=== PATIENT | female | born 1940 | race Caucasian/White ===

== ENCOUNTER 2017-11-06 15:45 | Inpatient (IN) | payer OTHER ==
[~2017-11-06] VITALS: Ht 152.4 cm; Wt 49.9 kg
[2017-11-06] MEDS ORDERED: PROTONIX40 MG PO (16:23)
[2017-11-06] MEDS ORDERED: REM15 PO (16:24)
[2017-11-06] MEDS ORDERED: TRAZODONE50 M1 PO (16:24)
[2017-11-06] MEDS ORDERED: CARVEDILOL6.25 M1 PO (16:25)
[2017-11-06] MEDS ORDERED: RENVELA800 M1 PO (16:25)
[2017-11-06] MEDS ORDERED: LASIX40 MG PO (16:26)
[2017-11-06] MEDS ORDERED: ATIVAN0.5 M1 PO (16:26)
[2017-11-06] MEDS ORDERED: LEVAQUIN750 MG (16:27)
[2017-11-06] MEDS ORDERED: PLAVIX75 M1 PO (16:27)
[2017-11-06 17:41] LABS: BASOPHIL % 0.2 % (0-2); PLATELET COUNT 244 x10^3mcL (130-400); RED CELL DISTRIBUTION WIDTH 13.9 % (11.5-14.5)
[2017-11-06 18:25] LABS: ALKALINE PHOSPHATASE 320 U/L (46-116); ALT/SGPT 32 U/L (14-59); AST/SGOT 31 U/L (15-37); BILIRUBIN TOTAL 0.2 mg/dL (0.20-1.00); CALCIUM 8.5 mg/dL (8.5-10.1); CARBON DIOXIDE 29.2 mmol/L (21-32); CHLORIDE SERUM 100 mmol/L (98-107); GLUCOSE SERUM 161 mg/dL (74-106); HDL CHOLESTEROL 57 mg/dL (40-60); LIPASE 525 IU/L (73-393); SODIUM SERUM 140 mmol/L (136-145); T4(THYROXINE) 11.5 ug/dL (4.7-13.3)
[2017-11-06 18:33] LABS: ALBUMIN 2.9 g/dL (3.4-5.0); AMYLASE 144 U/L (25-115); CHOLESTEROL 116 mg/dL (<200); POTASSIUM SERUM 2.5 mmol/L (3.5-5.1); TOTAL PROTEIN, SERUM 8.5 g/dL (6.4-8.2)
[2017-11-06 19:01] LABS: UA SPECIFIC GRAVITY 1.025 (1.005-1.035); microscopic required? YES; urine erythrocyte NEGATIVE (NEGATIVE)
[2017-11-06 19:10] LABS: AMPHETAMINE QUAL UR NONE DETECTED (NEG <=1000)
[2017-11-06 20:58] VITALS: BP 152/60
[2017-11-06 21:06] VITALS: BP 152/60
[2017-11-07 04:56] VITALS: BP 149/62
[2017-11-07 06:16] LABS: BASOPHIL % 0.5 % (0-2); PLATELET COUNT 227 x10^3mcL (130-400); RED CELL DISTRIBUTION WIDTH 14.2 % (11.5-14.5)
[2017-11-07 06:22] LABS: CALCIUM 8.5 mg/dL (8.5-10.1); CARBON DIOXIDE 24.2 mmol/L (21-32); CHLORIDE SERUM 106 mmol/L (98-107); CREATININE SERUM 2.9 mg/dL (0.6-1.0); GLUCOSE SERUM 138 mg/dL (74-106); MAGNESIUM 2.3 mg/dL (1.8-2.4); PHOSPHOROUS 3.5 mg/dL (2.5-4.9); POTASSIUM SERUM 3.3 mmol/L (3.5-5.1); SODIUM SERUM 142 mmol/L (136-145)
[2017-11-07 12:10] VITALS: BP 143/54
[2017-11-07 13:05] VITALS: BP 143/54
[2017-11-07 17:08] VITALS: BP 109/43
[2017-11-07 20:32] VITALS: BP 141/60
[2017-11-08 05:12] VITALS: BP 117/49
[2017-11-08 06:29] LABS: CALCIUM 8.3 mg/dL (8.5-10.1); CHLORIDE SERUM 104 mmol/L (98-107); CREATININE SERUM 2.7 mg/dL (0.6-1.0); GLUCOSE SERUM 102 mg/dL (74-106); POTASSIUM SERUM 3.7 mmol/L (3.5-5.1); SODIUM SERUM 139 mmol/L (136-145)
[2017-11-08 06:39] LABS: BASOPHIL % 0.7 % (0-2); PLATELET COUNT 208 x10^3mcL (130-400); RED CELL DISTRIBUTION WIDTH 14.1 % (11.5-14.5)
[2017-11-08 08:52] VITALS: BP 139/60
[2017-11-08 12:20] VITALS: BP 129/53
[2017-11-08 18:01] VITALS: BP 121/54
[2017-11-08 22:36] VITALS: BP 118/54
[2017-11-09 06:12] VITALS: BP 134/51
[2017-11-09 08:25] LABS: CALCIUM 8.1 mg/dL (8.5-10.1); CARBON DIOXIDE 28.6 mmol/L (21-32); CHLORIDE SERUM 102 mmol/L (98-107); CREATININE SERUM 1.4 mg/dL (0.6-1.0); GLUCOSE SERUM 131 mg/dL (74-106); POTASSIUM SERUM 3.2 mmol/L (3.5-5.1); SODIUM SERUM 139 mmol/L (136-145)
[2017-11-09 08:27] LABS: BASOPHIL % 0.7 % (0-2); PLATELET COUNT 223 x10^3mcL (130-400); RED CELL DISTRIBUTION WIDTH 14.2 % (11.5-14.5)
[2017-11-09] MEDS ORDERED: CLINDAMYCIN HC300 MG PO (17:28)
[2017-11-09] MEDS ORDERED: LAC PO (17:28)
[2017-11-09] MEDS ORDERED: LEVOFLOXACIN500 M1 PO (17:28)
[2017-11-09] MEDS ORDERED: LEXAPRO10 MG PO (17:28)
[2017-11-09 17:41] VITALS: BP 134/51
[2017-11-09 21:07] VITALS: BP 160/57
[2017-11-10 05:49] VITALS: BP 141/60
[2017-11-10 07:08] LABS: BASOPHIL % 0.5 % (0-2); PLATELET COUNT 250 x10^3mcL (130-400); RED CELL DISTRIBUTION WIDTH 14.2 % (11.5-14.5)
[2017-11-10 07:32] LABS: CALCIUM 8.1 mg/dL (8.5-10.1); CHLORIDE SERUM 103 mmol/L (98-107); GLUCOSE SERUM 139 mg/dL (74-106); POTASSIUM SERUM 4.3 mmol/L (3.5-5.1); SODIUM SERUM 138 mmol/L (136-145)
[2017-11-10 10:14] VITALS: BP 148/49
[2017-11-10 13:55] VITALS: BP 157/67
[2017-11-10 18:21] VITALS: BP 149/55
[2017-11-10 21:05] VITALS: BP 147/63
[2017-11-11 05:10] VITALS: BP 140/58
[2017-11-11 07:01] LABS: BASOPHIL % 0.5 % (0-2); PLATELET COUNT 271 x10^3mcL (130-400); RED CELL DISTRIBUTION WIDTH 14.2 % (11.5-14.5)
[2017-11-11 07:16] LABS: CALCIUM 8.3 mg/dL (8.5-10.1); CARBON DIOXIDE 22.1 mmol/L (21-32); CHLORIDE SERUM 103 mmol/L (98-107); CREATININE SERUM 2.1 mg/dL (0.6-1.0); GLUCOSE SERUM 130 mg/dL (74-106); POTASSIUM SERUM 3.9 mmol/L (3.5-5.1); SODIUM SERUM 137 mmol/L (136-145)
[2017-11-11 08:10] VITALS: BP 124/59
[2017-11-11 08:43] VITALS: Ht 152.4 cm; Wt 49.9 kg
[2017-11-11 17:16] VITALS: BP 140/66
[2017-11-11 21:50] VITALS: BP 148/75
[2017-11-12 06:25] VITALS: BP 140/86
[2017-11-12 06:58] LABS: BASOPHIL % 0.5 % (0-2); PLATELET COUNT 248 x10^3mcL (130-400); RED CELL DISTRIBUTION WIDTH 14.1 % (11.5-14.5)
[2017-11-12 07:03] LABS: CALCIUM 7.6 mg/dL (8.5-10.1); CARBON DIOXIDE 23.8 mmol/L (21-32); CHLORIDE SERUM 102 mmol/L (98-107); CREATININE SERUM 2.5 mg/dL (0.6-1.0); GLUCOSE SERUM 106 mg/dL (74-106); POTASSIUM SERUM 4.1 mmol/L (3.5-5.1); SODIUM SERUM 137 mmol/L (136-145)
[2017-11-12 11:17] VITALS: BP 93/47
[2017-11-12 19:02] VITALS: BP 117/48
[2017-11-12 21:41] VITALS: BP 120/61
[2017-11-13 06:17] VITALS: BP 146/62
[2017-11-13 07:10] LABS: BASOPHIL % 0.4 % (0-2); PLATELET COUNT 231 x10^3mcL (130-400); RED CELL DISTRIBUTION WIDTH 14.4 % (11.5-14.5)
[2017-11-13 07:25] VITALS: BP 142/100
[2017-11-13 07:47] LABS: CALCIUM 7.9 mg/dL (8.5-10.1); CARBON DIOXIDE 26.1 mmol/L (21-32); CHLORIDE SERUM 103 mmol/L (98-107); CREATININE SERUM 1.4 mg/dL (0.6-1.0); GLUCOSE SERUM 142 mg/dL (74-106); POTASSIUM SERUM 3.3 mmol/L (3.5-5.1); SODIUM SERUM 138 mmol/L (136-145)
[2017-11-13 17:35] VITALS: BP 145/65
[2017-11-13 21:23] VITALS: BP 129/62
[2017-11-14 06:19] VITALS: BP 115/57
[2017-11-14 07:21] LABS: BASOPHIL % 0.3 % (0-2); PLATELET COUNT 229 x10^3mcL (130-400)
[2017-11-14 07:22] LABS: RED CELL DISTRIBUTION WIDTH 14.8 % (11.5-14.5)
[2017-11-14 08:47] LABS: CARBON DIOXIDE 23.6 mmol/L (21-32); CHLORIDE SERUM 104 mmol/L (98-107); CREATININE SERUM 2.2 mg/dL (0.6-1.0); GLUCOSE SERUM 114 mg/dL (74-106); POTASSIUM SERUM 3.7 mmol/L (3.5-5.1); SODIUM SERUM 138 mmol/L (136-145)
[2017-11-14 11:00] VITALS: BP 126/60
[2017-11-14 14:21] VITALS: BP 126/60
== END 2017-11-14 18:21 | DRG 206 ==
LOC: ED 15:45 → MU 18:59 → DU 18:59 → MU 11-11 11:00
PROVIDERS: Emergency Medicine; Family Medicine; Family Medicine Sports Medicine; Surgery
PROC: 5A1D70Z Performance of Urinary Filtration, Intermittent, Less than 6 Hours Per Day (ICD-10-PCS; 2017-11-08)
PROC: 5A1D70Z Performance of Urinary Filtration, Intermittent, Less than 6 Hours Per Day (ICD-10-PCS; 2017-11-08)
PROC: B548ZZA Ultrasonography of Superior Vena Cava, Guidance (ICD-10-PCS; 2017-11-11)
PROC: 02HV33Z Insertion of Infusion Device into Superior Vena Cava, Percutaneous Approach (ICD-10-PCS; principal; 2017-11-11 11:00)
DX: T82.838A Hemorrhage due to vascular prosthetic devices, implants and grafts, initial encounter (principal); N17.0 Acute kidney failure with tubular necrosis; J69.0 Pneumonitis due to inhalation of food and vomit; I12.0 Hypertensive chronic kidney disease with stage 5 chronic kidney disease or end stage renal disease; E11.22 Type 2 diabetes mellitus with diabetic chronic kidney disease; N18.6 End stage renal disease; E11.65 Type 2 diabetes mellitus with hyperglycemia; E87.6 Hypokalemia; F32.9 Major depressive disorder, single episode, unspecified; E44.0 Moderate protein-calorie malnutrition; D50.9 Iron deficiency anemia, unspecified; D63.1 Anemia in chronic kidney disease; Z53.29 Procedure and treatment not carried out because of patient's decision for other reasons; Y83.8 Other surgical procedures as the cause of abnormal reaction of the patient, or of later complication, without mention of misadventure at the time of the procedure; E78.00 Pure hypercholesterolemia, unspecified; Z99.2 Dependence on renal dialysis; Z86.73 Personal history of transient ischemic attack (TIA), and cerebral infarction without residual deficits; Z88.0 Allergy status to penicillin; Z79.4 Long term (current) use of insulin; Z87.891 Personal history of nicotine dependence; Z83.3 Family history of diabetes mellitus; Z68.21 Body mass index [BMI] 21.0-21.9, adult; Z56.0 Unemployment, unspecified; Y92.89 Other specified places as the place of occurrence of the external cause
CPT/HCPCS: 82962; 83880; 86580; 97110-GP; 97530-GP; 97535-GP; A4301; A4719; J1644; J1956; J2001; J2250; J3010; J3480; J3490; J7030; J7040; Q0092; Q0163